=== PATIENT | female | born 1985 | race Caucasian/White ===

== ENCOUNTER 2019-12-28 00:08 | Inpatient (IN) | payer MEDICAID, OTHER ==
[~2019-12-28] VITALS: Ht 157.5 cm; Wt 84.4 kg
[2019-12-28] MEDS ORDERED: LIDOCAINE HCL 1% 20ML VIAL (Pyxis) INJ INFIL SCH (01:15)
[2019-12-28] MEDS ORDERED: NALOXONE HCL 0.4 MG/ML 1ML VIAL IM PRN (01:15)
[2019-12-28] MEDS ORDERED: CARBOPROST TROMETHAMINE 250 MCG/ML AMPUL IM PRN (01:15)
[2019-12-28] MEDS ORDERED: METHYLERGONOVINE MALEATE 0.2 MG/ML IM PRN (01:15)
[2019-12-28] MEDS ORDERED: FERR325T23 MT (01:20)
[2019-12-28] MEDS ORDERED: PNV1TABL76 MT (01:20)
[2019-12-28] MEDS ORDERED: BUTORPHANOL TARTRATE 2 MG/ML VIAL IV PRN (01:30)
[2019-12-28] MEDS ORDERED: MISOPROSTOL 100MCG TABLET VG PRN (01:30)
[2019-12-28 01:37] LABS: BASOPHILS % 0.4 % (0.0-2.0); EOSINOPHILS % 0.2 % (0.0-5.0); HEMATOCRIT. 38.3 % (36.0-48.0); HEMOGLOBIN. 12.9 g/dL (12.0-16.0); LYMPHOCYTES % 27.1 % (20.0-50.0); MEAN CORPUSCULAR HEMOGLOBIN 30.9 pg (28.0-32.0); MEAN CORPUSCULAR VOLUME 91.5 fL (81.0-99.0); MEAN PLATELET VOLUME 11.6 fl (7.4-10.4); MONOCYTES % 5.9 % (2.0-8.0); NEUTROPHILS % 66.4 % (40.0-76.0); PLATELET 199 x1000/uL (130-400); RED BLOOD CELL COUNT 4.18 mill/uL (4.2-5.4); RED CELL DISTRIBUTION WIDTH 14.1 % (11.6-14.6)
[2019-12-28] MEDS: LACTATED RINGERS 1,000 ML IV SCH ×2 (01:40→06:12)
[2019-12-28 01:48] LABS: CLARITY URINE CLEAR (CLEAR); COLOR URINE YELLOW (YELLOW); KETONES URINE NEGATIVE (NEGATIVE); LEUKOCYTE ESTERASE URINE NEGATIVE (NEGATIVE); NITRITE URINE NEGATIVE (NEGATIVE); OCCULT BLOOD URINE NEGATIVE (NEGATIVE); PH URINE 5.5 (4.5-8.0); PROTEIN URINE TRACE (NEGATIVE); SPECIFIC GRAVITY URINE 1.021 (1.005-1.030); UROBILINOGEN URINE 0.2 E.U./dL (0.2-1.0)
[2019-12-28 01:50] LABS: CHLORIDE 105 mEq/L (98-107)
[2019-12-28 01:52] LABS: D-DIMER 1.22 mg/L FEU (<0.50); INR 0.9; PARTIAL THROMBOPLASTIN TIME 26.6 sec (23.4-31.0); PROTHROMBIN TIME 9.6 sec (9.6-11.0)
[2019-12-28 01:55] LABS: *AMPHETAMINES SCREEN URINE NEGATIVE (NEGATIVE); *BARBITURATES SCREEN URINE NEGATIVE (NEGATIVE); CANNABINOID URINE SCREEN NEGATIVE (NEGATIVE); OPIATES URINE SCREEN NEGATIVE (NEGATIVE); PHENCYCLIDINE URINE SCREEN NEGATIVE (NEGATIVE)
[2019-12-28 01:56] LABS: *BENZODIAZEPINES SCREEN URINE NEGATIVE (NEGATIVE); *COCAINE SCREEN URINE NEGATIVE (NEGATIVE); METHADONE URINE SCREEN NEGATIVE (NEGATIVE)
[2019-12-28] MEDS ORDERED: AMPICILLIN 2,000 MG in SODIUM CHLORIDE 0.9% 100 ML IV SCH (02:00)
[2019-12-28 02:17] LABS: HEPATITIS B SURFACE ANTIGEN NEGATIVE
[2019-12-28] MEDS: DEXT 5%/LR + PITOCIN 20UNITS/L 1,000 ML IV SCH ×2 (06:58→11:22)
[2019-12-28] MEDS ORDERED: AMPICILLIN 1,000 MG in SODIUM CHLORIDE 0.9% 50 ML IV SCH (08:00)
[2019-12-28] MEDS ORDERED: DEXT 5%/LR + PITOCIN 20UNITS/L 1,000 ML IV SCH (11:45)
[2019-12-28] MEDS ORDERED: DIPHENHYDRAMINE 25MG CAPSULE PO PRN (11:45)
[2019-12-28] MEDS ORDERED: LANOLIN OINT 7GM TUBE TOP PRN (11:45)
[2019-12-28] MEDS ORDERED: IBUPROFEN 800MG TABLET PO PRN (11:45)
[2019-12-28] MEDS ORDERED: IBUPROFEN 400MG TABLET PO PRN (11:45)
[2019-12-28] MEDS ORDERED: RHO(D) IMMUNE GLOBULIN 300 MCG/SYR IM PRN (11:45)
[2019-12-28 12:45] VITALS: BP 110/70
[2019-12-28 13:15] VITALS: BP 114/68
[2019-12-28] MEDS ORDERED: BENZOCAINE/LANOLIN/ALOE VERA SPRAY TOP PRN (17:30)
[2019-12-28 20:30] VITALS: BP 126/82
[2019-12-29 05:15] VITALS: BP 112/62
[2019-12-29 06:55] LABS: BASOPHILS % 0.6 % (0.0-2.0); EOSINOPHILS % 0.5 % (0.0-5.0); HEMOGLOBIN. 11.7 g/dL (12.0-16.0); LYMPHOCYTES % 25.6 % (20.0-50.0); MEAN CORPUSCULAR HEMOGLOBIN 30.5 pg (28.0-32.0); MEAN CORPUSCULAR VOLUME 91.5 fL (81.0-99.0); MEAN PLATELET VOLUME 10.6 fl (7.4-10.4); MONOCYTES % 7.3 % (2.0-8.0); PLATELET 166 x1000/uL (130-400); RED BLOOD CELL COUNT 3.82 mill/uL (4.2-5.4); RED CELL DISTRIBUTION WIDTH 14.1 % (11.6-14.6)
[2019-12-29 08:00] VITALS: BP 112/76
[2019-12-29] MEDS ORDERED: PRENATAL VIT/FE FUMARATE/FA TABLET PO SCH (09:00)
[2019-12-29] MEDS ORDERED: SIMETHICONE 80MG TABLET CHEW PO SCH (12:30)
[2019-12-29] MEDS ORDERED: BISACODYL 5MG TABLET PO SCH (17:00)
== END 2019-12-29 17:00 | disposition home or self-care (01) | DRG 560 ==
LOC: INTOOBSV 00:08 → 8 EST LDRP 00:08 → OBSVTOIN 00:08 → 8EST 12:49
PROVIDERS: ADMIT Obstetrics & Gynecology; ATTEND Obstetrics & Gynecology
PROC: 10E0XZZ Delivery of Products of Conception, External Approach (ICD-10-PCS; principal; 2019-12-28)
PROC: 0KQM0ZZ Repair Perineum Muscle, Open Approach (ICD-10-PCS; 2019-12-28)
DX: O70.1 Second degree perineal laceration during delivery (principal); Z3A.39 39 weeks gestation of pregnancy; Z37.0 Single live birth; O90.81 Anemia of the puerperium; D62 Acute posthemorrhagic anemia
CPT/HCPCS: 36415; 80053; 80305; 81003; 84550; 85025; 85379; 85384; 86592; 86703; 86762; 86850; 86900; 87340; J0290; J2590; J3490; J7050; J7120